=== PATIENT | male | born 1995 | race Caucasian/White ===

== ENCOUNTER 2017-01-04 19:38 | Emergency (ER) | payer SELFPAY ==
[~2017-01-04] VITALS: Ht 190.5 cm; Wt 95.0 kg
[2017-01-04 19:41] VITALS: BP 149/67; PULSE 70; RESP 15; TEMP 98.7; O2SAT 97
--- NOTE | 2017-01-04 20:27 | PD ---
HPI Chief Complaint: ENT Complaint Time Seen by Provider: 20:20 Travel History International Travel<30 days: No Contact w/Intl Traveler<30days: No Traveled to known affect area: No History of Present Illness HPI 21-year-old male presents to the emergency room for evaluation of decreased hearing from the left ear. States yesterday he was pulling on his earlobe when he had sudden decreased hearing. His girlfriend tried to remove wax with a scoop but was unable to successfully remove a large amount. He denies any recent fever, chills, nausea, vomiting, earache, drainage, sore throat, or congestion. No chronic medical conditions or daily medications. Denies any recent loud exposures. PFSH Past Medical History Medical History: Denies Significant Hx Past Surgical History Surgical History: No Previous Surgery Social History Alcohol Use: Yes (RARE) Tobacco Use: No Substance Use: No Allergies-Medications (Allergen,Severity, Reaction): Coded Allergies: No Known Allergies (Unverified , 01/04/17) Reported Meds & Prescriptions Reported Meds & Active Scripts Active No Active Prescriptions or Reported Medications Review of Systems Except as stated in HPI: all other systems reviewed are Neg Physical Exam Narrative GENERAL: Well-nourished, well-developed male in no acute distress. Afebrile. Ambulatory. SKIN: Focused skin assessment warm/dry. HEAD: Normocephalic. EYES: No scleral icterus. No injection or drainage. EARS: Bilateral pinnae and external canals appear within normal limits. Right tympanic membrane without erythema, dullness or perforation. Left tympanic membrane cannot be visualized due to cerumen impaction. NECK: Supple, trachea midline. No JVD or lymphadenopathy. CARDIOVASCULAR: Regular rate and rhythm without murmurs, gallops, or rubs. RESPIRATORY: Breath sounds equal bilaterally. No accessory muscle use. Data Data Last Documented VS Vital Signs Date Time Temp Pulse Resp B/P (MAP) Pulse Ox O2 Delivery O2 Flow Rate FiO2 01/04/17 19:41 98.7 70 15 149/67 (94) 97 Room Air Orders Orders Ear Irrigation (01/04/17 20:24) MDM Medical Decision Making Medical Screen Exam Complete: Yes Emergency Medical Condition: Yes Medical Record Reviewed: Yes Differential Diagnosis Cerumen impaction, otitis media, otitis externa, conduction hearing loss Narrative Course 21-year-old male presents to the emergency room for evaluation of left ear decreased hearing that started suddenly yesterday. States it started after he was pulling on his ear. Physical exam reveals cerumen impaction of the left ear. Cerumen was removed without difficulty in the ER. Patient reports immediate improvement in symptoms and states he can hear normally. Tympanic membranes shows no evidence of infection. He is stable for outpatient follow- up. Diagnosis Primary Impression: Cerumen impaction Qualified Codes: H61.22 - Impacted cerumen, left ear Referrals: Primary Care Physician Additional Instructions: Rest and drink plenty of fluids. [id number] allergy medication. Follow-up with a primary care physician. Return to the emergency room for worsening symptoms. Scripts No Active Prescriptions or Reported Meds Disposition: 01 DISCHARGE HOME Condition: Stable Yolande Cordon Jan 04, 2017 20:27
== END 2017-01-04 21:18 | disposition home or self-care (01) ==
LOC: NEPD 19:38
DX: H61.22 Impacted cerumen, left ear (principal)
CPT/HCPCS: 99283